=== PATIENT | male | born 2000 | race Caucasian/White ===

== ENCOUNTER 2020-12-24 23:11 | Emergency (ER) | payer OTHER ==
[~2020-12-24] VITALS: Ht 165.1 cm; Wt 68.0 kg
[2020-12-24 23:24] VITALS: Ht 165.1 cm; Wt 68.0 kg
[2020-12-25] MEDS ORDERED: KEF500 PO (01:24)
[2020-12-25] MEDS ORDERED: ULTRAM50 MG PO (01:24)
[2020-12-25 02:44] VITALS: BP 122/70
== END 2020-12-25 02:44 | disposition home or self-care (01) ==
LOC: ED 23:11
DX: S52.501A Unspecified fracture of the lower end of right radius, initial encounter for closed fracture (principal); S01.511A Laceration without foreign body of lip, initial encounter; V49.49XA Driver injured in collision with other motor vehicles in traffic accident, initial encounter; Y93.I9 Activity, other involving external motion; Y92.488 Other paved roadways as the place of occurrence of the external cause; Y99.8 Other external cause status
CPT/HCPCS: 90715; J2001

== ENCOUNTER 2021-01-06 13:36 | Emergency (ER) | payer OTHER, MEDICAID ==
[~2021-01-06] VITALS: Ht 165.1 cm; Wt 68.9 kg
[~2021-01-06 13:36] MED LIST: KEF500 PO; ULTRAM50 MG PO
[2021-01-06 14:19] VITALS: Ht 165.1 cm; Wt 68.9 kg
[2021-01-06 15:35] VITALS: BP 121/80
== END 2021-01-06 15:35 | disposition home or self-care (01) ==
LOC: ED 13:36
DX: S52.501A Unspecified fracture of the lower end of right radius, initial encounter for closed fracture (principal); V49.9XXA Car occupant (driver) (passenger) injured in unspecified traffic accident, initial encounter; Y93.89 Activity, other specified; Y92.89 Other specified places as the place of occurrence of the external cause; Y99.8 Other external cause status